=== PATIENT | female | born 1995 | race Caucasian/White ===

== ENCOUNTER 2021-12-19 19:08 | Emergency (ER) | payer BC, MEDICAID, SELFPAY ==
[2021-12-19 19:09] VITALS: BP 131/89; PULSE 128; RESP 15; TEMP 36.8; O2SAT 98; BMI 23.4
--- NOTE | 2021-12-19 19:54 | EDS_ITS ---
HPI HPI - GI History of Present Illness Chief Complaint: Abd Pain Informant: patient Abdominal Pain/Flank Pain Onset: Today Context: Sudden Onset Timing: Continuous Quality: Sharp Location: - (Periumbilical and left mid abdomen) Worsened by: Nothing Relieved by: Nothing Nausea/Vomiting/Emesis GI Symptom: Positive for Nausea and Vomiting Onset: Today Quality: Positive for Nonbilious; Negative for Blood streaks, Coffee ground or Hematemesis Episodes: 10 Diarrhea/Melena/Hematochezia GI Symptom: Positive for Diarrhea; Negative for Melena or Hematochezia Associated Symptoms Associated Symptoms: Negative for Dysuria, Frequency or Hematuria LMP: 2 weeks ago Narrative Narrative: Patient Cindi with abdominal pain, nausea, and vomiting that began early this morning. Patient states she woke up early this morning with nausea and vomiting. Patient denies any hematemesis or coffee-ground emesis. Patient states she vomited approximately 10 times. Patient states it is mainly stomach contents. Patient states that she started having some periumbilical abdominal pain later in the day. Patient states it comes and goes. Patient states it is sharp. Patient states that sometimes it radiates to the left mid abdomen. Patient denies any radiation into her back. Patient states nothing makes it better nothing makes it worse. Patient also admits to some diarrhea. Patient denies any melena or hematochezia. Patient denies any urinary complaints. Patient states her last menstrual period was approximately 2 weeks ago. PFSH PFSH Medical History no medical history no medical history Home Medications amoxicillin 875 mg-potassium clavulanate 125 mg tablet 875 mg PO Q12H #20 TABLETS 12/19/21 [Rx Last Taken Unknown] Allergy/AdvReac Type Severity Reaction Status Date / Time No Known Allergies Allergy Verified 12/19/21 19:12 Surgical History no surgical history no surgical history Social History Smoking Status: Current every day smoker tobacco type: cigarettes ROS ROS ED Constitutional Constitutional ED: Reports chills and subjective; Denies fever(s) Eyes Eyes: Denies blurry vision or change in vision ENT ENT ED: Denies rhinorrhea or sore throat Cardiovascular Cardiovascular: Denies chest pain or palpitations Respiratory/Chest Respiratory/Chest: Denies cough or dyspnea Gastrointestinal Gastrointestinal: Reports abdominal pain, diarrhea, nausea and vomiting Genitourinary Genitourinary ED: Denies dysuria or hematuria Musculoskeletal Musculoskeletal: Denies back pain or neck pain Integumentary Denies abscess or rash Neurologic Neurologic: Denies headache(s) or weakness Allergic/Immunologic Allergic/Immunologic ED: Denies mouth swelling or urticaria EXAM Physical Exam Const Vital Signs: 12/19/21 19:09 Temperature 98.3 F Temperature Source Temporal Pulse Rate 128 H Respiratory Rate 15 Blood Pressure 131/89 H Blood Pressure Mean 103 Pulse Ox 98 Oxygen Delivery Method Room Air Positive well nourished and well developed General Appearance ED: well developed and NAD HEENT Reports moist mucous membranes Neck supple and no JVD Resp normal respiratory effort and clear to auscultation bilaterally Cardio regular rate and regular rhythm GI non-distended Auscultation: normoactive bowel sounds Palpation: soft and tender LUQ and periumbilical; Negative for guarding or rebound tenderness present Neuro CN's II-XII intact bilaterally, moves all extremities and no sensory deficits noted Sensorium / Orientation: alert Motor Exam: strength 5/5 throughout Psych mental status grossly normal MDM MDM MDM Narrative Medical decision making narrative: Patient was given IV fluids, morphine, and Zofran. CBC showed a mild thrombocytopenia of 137. Comprehensive metabolic profile was within normal limits. Lipase was normal. Urinalysis shows urine ketones of 150. Leukocyte esterase was 500. There were 5-10 white blood cells and 10-25 squamous epithelial cells. There is 2+ bacteria. Urine culture was ordered. CT scan of the abdomen pelvis was obtained. There is mild infectious versus inflammatory distal terminal ileitis. This was interpreted by the radiologist and reviewed by myself. Patient was given a dose of Augmentin here. Patient was given a prescription for Augmentin. Patient was instructed to follow-up with a primary care physician in 5 to 7 days. Patient understands and is agreeable with the plan. All questions were answered. Lab Data Attestation: I reviewed the patient's lab results. Labs: Laboratory Results - last 24 hr 12/19/21 12/19/21 12/19/21 20:04 20:04 20:15 WBC 8.1 RBC 4.95 Hgb 14.5 Hct 44.5 MCV 89.9 MCH 29.3 MCHC 32.6 RDW Std Deviation 41.6 RDW Coeff of Ana 12.8 Plt Count 137 L MPV TNP Immature Gran % (Auto) 0.500 Neut % (Auto) 93.0 H Lymph % (Auto) 3.6 L [place] % (Auto) 2.7 Eos % (Auto) 0.1 Baso % (Auto) 0.1 Absolute Neuts (auto) 7.5 Absolute Lymphs (auto) 0.29 L Nucleated RBC % 0 Differential Comment SCANNED Sodium 139 Potassium 3.9 Chloride 105 Carbon Dioxide 26.0 Anion Gap 8 BUN 10 Creatinine 0.80 Estim Creat Clear Calc 96.73 Est GFR (MDRD) Af Amer 112 Est GFR (MDRD) Non-Af 93 BUN/Creatinine Ratio 12.5 Glucose 109 H Calcium 9.0 Total Bilirubin 0.80 AST 15 ALT 19 Alkaline Phosphatase 63 Total Protein 7.4 Albumin 3.9 Globulin 3.5 Albumin/Globulin Ratio 1.1 Lipase 78 Urine Color Yellow Urine Clarity Sl. Cloudy Urine pH 5.0 Ur Specific [place] 1.025 Urine Protein 30 H Urine Glucose (UA) Normal Urine Ketones 150 A* Urine Occult Blood 10 H Urine Nitrite Negative Urine Bilirubin 1 H Urine Urobilinogen Normal Ur Leukocyte Esterase 500 H Urine RBC 0 SEEN Urine WBC 5-10 SEEN Ur Squamous Epith Cells 10-25 SEEN Urine Bacteria 2+ Urine Mucus 2+ Radiography Diagnostic Testing: Clinical Impression(s) from Imaging Studies Abdomen/Pelvis CT 12/19/21 20:02 IMPRESSION: Mild infectious versus inflammatory distal and terminal ileitis. If the patient''s symptoms persist or become chronic/intermittent, Crohn''s disease should be considered. Electronically Signed: Addison Jackman MD at 22:03 EDT Reading Location ID and State: [address] [place] [address] Tel , Service support , Discharge Plan Triage Chief Complaint: Abd Pain ED Provider: Ovi Hernadez Dx/Rx/DC Orders Clinical Impression: Ileitis, terminal, Abdominal pain Instructions: ED Crohn's Disease Prescriptions: New amoxicillin-pot clavulanate [amoxicillin-pot clavulanate] 875-125 mg tablet 875 mg PO Q12H Qty: 20 0RF Primary Care Provider: Care Physician,No Primary Referrals: Care Physician,No Primary [Primary Care Provider] - 5-7 Days Disposition Disposition: Home, Self Care
--- NOTE | 2021-12-19 20:02 | CT_ITS ---
STUDY: CT ABDOMEN AND PELVIS WITH CONTRAST REASON FOR EXAM: Female, 26 years old. Abdominal pain. TECHNIQUE: IV Contrast: 100mL Isovue-300 Enteric contrast: GASTROGRAFIN administered. Axial images obtained. Coronal and sagittal reformatted images provided. Individualized dose optimization techniques were used for this CT. COMPARISON: None. FINDINGS: Partially visualized lower chest: Lung bases unremarkable. Liver: No concerning lesions. Gallbladder and biliary tree: No visible gallstones. No pericholecystic inflammation. No biliary ductal dilation. Pancreas: No pancreatic lesions or inflammation. Spleen: Normal size, no splenic lesions. Adrenal glands: No concerning masses. Kidneys and ureters: No hydronephrosis or renal stones. No concerning masses. No ureteral dilation. Bowel: Normal appendix mild long segment wall thickening of the distal and terminal ileum. No obstruction. No other inflammation of the bowel. Urinary bladder: No stones or wall thickening. Reproductive:Normal uterus and ovaries. Physiologic simple 2.8 cm left ovarian cyst. Vascular: No abdominal aortic aneurysm. Patent portal, mesenteric and systemic veins. Retroperitoneal and peritoneal spaces: Moderate volume simple density fluid in the pelvis. No free air or extraluminal air or abscess. No lymphadenopathy. No retroperitoneal mass or hematoma. Osseous: No acute osseous abnormality. Abdominal and pelvic wall: No concerning findings. Any findings described in the findings sections and not included in the impression are incidental and do not require imaging follow-up. CT/Abdomen/Pelvis WITH Contrast IMPRESSION: Mild infectious versus inflammatory distal and terminal ileitis. If the patient''s symptoms persist or become chronic/intermittent, Crohn''s disease should be considered. Electronically Signed: Addison Jackman MD at 22:03 EDT Reading Location ID and State: [facility] [place] Tel , Service support ,
[2021-12-19] MEDS: Ondansetron 4 MG/2 ML Vial IV (20:16)
[2021-12-19] MEDS: 0.9% Normal Saline 1,000 ML 1000 ML IV (20:16)
[2021-12-19] MEDS: Morphine 4 MG/ML Syringe IV (20:17)
[2021-12-19 20:27] LABS: Absolute Lymphocyte Count 0.29 X10^3/uL (0.83-4.51); Absolute Neutrophil Count 7.5 X10^3/uL (2.0-7.7); Basophil# 0.01 X10^3/uL; Basophil% 0.1 % (0-1); Eosinophil# 0.01 X10^3/uL; Eosinophils% 0.1 % (0-5); Hematocrit 44.5 % (37-47); Hemoglobin 14.5 g/dL (12.0-15.0); Lymphocyte # 0.29 X10^3/ul (0.83-4.51); Lymphocyte % 3.6 % (19-41); Mean Corp Hgb Conc 32.6 g/dL (32-36); Mean Corpuscular Hgb 29.3 pg (27.0-32.0); Mean Corpuscular Volume 89.9 fL (81-99); Monocyte# 0.22 X10^3/uL; Monocyte% 2.7 % (0-10); NRBC Flagged by Analyzer 0 % (0-5); Neutrophil # 7.53 X10^3/uL (2.7-7.7); POSITIVE DIFFERENTIAL YES; Platelet Count 137 K/mm3 (150-450); RBC Distribution Width CV 12.8 % (11.6-14.6); RBC Distribution Width SD 41.6 fl (35.1-43.9); Red Blood Count 4.95 M/mm3 (4.2-5.4); White Blood Count 8.1 K/mm3 (4.4-11.0)
[2021-12-19 20:27] LABS: Red Blood Cells-Urine 0 SEEN /hpf (0-5)
[2021-12-19 20:28] LABS: Color, Urine Yellow (Yellow); Glucose, Dipstick Normal (Normal); Leukocyte Esterase-Dipstick 500 /ul (Negative); Nitrite-Dipstick Negative (Negative); Occult Blood-Urine 10 /ul (Negative); Protein-Dipstick 30 mg/dl (Negative); Specific Gravity, Urine 1.025 (1.002-1.030); Urine Clarity Sl. Cloudy (Clear); Urine Urobilinogen Normal (Normal)
[2021-12-19 20:35] LABS: Differential Indicated SCAN CRITERIA MET
[2021-12-19 20:36] LABS: Urine Bilirubin Dipstick 1 mg/dL (Negative)
[2021-12-19 20:37] LABS: Ketone-Dipstick 150 mg/dl (Negative)
[2021-12-19 20:43] LABS: Squamous Epithelial Cells - UA 10-25 SEEN /hpf (5-10)
[2021-12-19 20:44] LABS: Bacteria 2+ /hpf (None Seen); Mucous, Urine 2+ /hpf (<or=2+); White Blood Cells 5-10 SEEN /hpf (0-5)
[2021-12-19 20:45] LABS: ALB/GLOB Ratio 1.1 RATIO (0.9-2.4); AST(SGOT) 15 U/L (15-37); Alanine Aminotransfer ALT/SGPT 19 U/L (13-56); Albumin, Serum 3.9 g/dL (3.2-5.0); Alkaline Phosphatase 63 U/L (45-117); Anion Gap 8 (5-15); BUN 10 mg/dL (7-18); BUN/Creat Ratio 12.5 RATIO (10-20); Chloride 105 mmol/L (98-107); EST Glomerular Filtration Rate 93 mL/min (>60); Est Glom Filt Rate - Afr Amer 112 mL/min (>60); Estimated Creatinine Clearance 96.73 ml/min; Globulin 3.5 g/dL (2.2-4.2); Glucose 109 mg/dL (74-106); Lipase 78 U/L (73-393); Potassium 3.9 mmol/L (3.5-5.1); Protein, Total 7.4 g/dL (6.4-8.2); Sodium Level 139 mmol/L (136-145)
--- NOTE | 2021-12-19 20:52 | CM.ED ---
SW Note Referral Source: Case Find Referral Reason: No Primary Care Physician (PCP) SW reviewed chart and noted that patient has no PCP. SW provided patient with list of [facility] and [facility] Physician List for reference. SW also provided patient with handout ?Where to go When?. No other issues or concerns voiced at this time. SW remains available for any additional needs. Plan: Provided patient with PCP information Greta PORTER
[2021-12-19 21:05] LABS: Differential Comment SCANNED
[2021-12-19] MEDS: Amox/Clavulanate 875 MG Tablet PO (22:36)
== END 2021-12-19 22:42 | disposition home or self-care (01) ==
PROVIDERS: Emergency Provider Emergency Medicine; Visit Provider Emergency Medicine
DX: R10.9 Unspecified abdominal pain (principal); F17.210 Nicotine dependence, cigarettes, uncomplicated; R11.2 Nausea with vomiting, unspecified; R19.7 Diarrhea, unspecified
CPT/HCPCS: 74177; 80053; 81001; 83690; 85025; 96361; 96374; 96375; 99284; Q9967; A4216; J2405

== ENCOUNTER 2023-10-09 07:04 | Emergency (ER) | payer BC, SELFPAY ==
[2023-10-09 07:04] VITALS: BP 136/84; PULSE 113; RESP 14; TEMP 36.6; O2SAT 97; BMI 27.6
--- NOTE | 2023-10-09 07:21 | CT_ITS ---
STUDY: CT ABDOMEN AND PELVIS WITH CONTRAST REASON FOR EXAM: Female, 28 years old. Abd pain with nausea and vomiting. RADIATION DOSAGE (If Supplied By Facility): CTDIvol = ( 10.6 ) mGy, DLP = ( 571.75 ) mGycm TECHNIQUE: Transaxial images were obtained from the dome of the diaphragm to the symphysis pubis without oral contrast. IV 100mL Isovue-300 was administered. Sagittal and coronal images were reconstructed. Individualized dose optimization techniques were used for this CT. COMPARISON: Comparison is made with prior study dated December 19, 2021. FINDINGS: There is a minimal degree of dependent bibasilar atelectasis. The visualized portions of the heart are within normal limits. Normal liver. Normal gallbladder and extrahepatic biliary system. Normal spleen. Normal pancreas. Normal bilateral adrenal glands. Normal right kidney. Normal left kidney. Normal visualized stomach. There are several fluid-filled nondilated small bowel loops in the ileum. Minimal thickening of the bowel wall at that site. Crohn''s disease should be ruled out. Normal colon. The appendix is visualized and appears normal. Normal abdominal aorta. Normal inferior vena cava. Normal retroperitoneum. Normal urinary bladder. There is a 2 cm cyst in the right ovary. Minimal amount of free fluid is seen in the cul-de-sac. Normal abdominal wall. Normal osseous structures. CT/Abdomen/Pelvis W IV Cont ONLY IMPRESSION: Nondistended fluid-filled distal small bowel loops. Mild thickening of the small bowel loops in the ileum and distal ileum suggestive of possible early Crohn''s disease. Clinical correlation recommended. Minimal amount of free fluid in the cul-de-sac. 2 cm right ovarian cyst. Electronically Signed: Lobo Munoz MD at 9:03 EDT ,
--- NOTE | 2023-10-09 07:22 | EDS_ITS ---
HPI History of Present Illness Chief Complaint: Abd Pain Informant: patient Onset/Context/Timing Onset: Yesterday Narrative Narrative: Patient presents secondary to abdominal pain with vomiting. She states last belinda lolita she vomited once but symptoms seem to come down. When she woke this morning to go to work she has been having intermittent sharp stabbing pain around the umbilicus. No further vomiting this morning. No diarrhea. No fever or chills. She denies any significant prior medical history and no surgical history. PFSH PFS Medical History (Updated 10/09/23 @ 09:[address] Sumi Nation MD) Inflammation of intestine Medical History no medical history no medical history Home Medications amoxicillin 875 mg-potassium clavulanate 125 mg tablet 875 mg (0.875 x 875-125 mg) PO Q12H #20 TABLETS 12/19/21 [Rx Last Taken Unknown] naproxen 500 mg tablet 500 mg PO BID #14 tabs 10/09/23 [Rx Last Taken Unknown] tramadol 50 mg tablet 50 mg PO Q6H PRN pain #14 tabs 10/09/23 [Rx Last Taken Unknown] Allergy/AdvReac Type Severity Reaction Status Date / Time No Known Allergies Allergy Verified 10/09/23 07:05 Surgical History no surgical history no surgical history Social History Smoking Status: Current every day smoker tobacco type: cigarettes ROS ROS ED Constitutional Constitutional ED: Denies chills or fever(s) Eyes Eyes: Denies discharge from eye(s) ENT ENT ED: Denies discharge from eye(s), rhinorrhea or sore throat Cardiovascular Cardiovascular: Denies chest pain Respiratory/Chest Respiratory/Chest: Denies cough or dyspnea Gastrointestinal Gastrointestinal: Reports abdominal pain, nausea and vomiting; Denies diarrhea Genitourinary Genitourinary ED: Denies dysuria Musculoskeletal Musculoskeletal: Denies back pain or extremity pain Integumentary Denies Abrasions or rash Neurologic Neurologic: Denies headache(s) or weakness Allergic/Immunologic Allergic/Immunologic ED: Denies lip swelling or urticaria EXAM Physical Exam Const Vital Signs: 10/09/23 07:04 10/09/23 09:04 Temperature 98 F 97.6 F L Temperature Source Temporal Temporal Pulse Rate 113 H 51 L Respiratory Rate 14 16 Blood Pressure 136/84 H 120/62 Blood Pressure Mean 101 81 Pulse Ox 97 99 Oxygen Delivery Method Room Air Room Air Positive well nourished and well developed General Appearance ED: well developed HEENT Reports moist mucous membranes Eyes EOMs intact bilaterally Chest Wall inspection of chest normal and palpation of chest normal Resp normal respiratory effort and clear to auscultation bilaterally Cardio regular rate and regular rhythm GI GI Narrative: Abdomen soft with minimal periumbilical tenderness. No guarding or rebound. No palpable masses. Hypoactive bowel sounds are noted. Extremity normal to inspection Neuro oriented x3 and no sensory deficits noted Motor Exam: strength 5/5 throughout Psych mental status grossly normal Skin no rashes or lesions noted MDM MDM MDM Narrative Medical decision making narrative: IV line established. Patient given Toradol and Zofran along with IV fluids. Labwork obtained to evaluate for leukocytosis, anemia, and electrolyte derangement. Urinalysis obtained to evaluate for infection/hematuria. CT scan of the abdomen pelvis IV contrast obtained to evaluate for potential ovarian cyst, appendicitis, mesenteric adenitis. History & Record Review Discussion w/independent historian: Patient Additional record(s) reviewed:: Prior labs Lab Data Attestation: I reviewed the patient's lab results. Labs: Laboratory Results - last 24 hr 10/09/23 05:27 WBC 9.9 RBC 4.74 Hgb 13.7 Hct 42.0 MCV 88.6 MCH 28.9 MCHC 32.6 RDW Std Deviation 40.9 RDW Coeff of Ana 12.5 Plt Count 128 L MPV 13.9 H Immature Gran % (Auto) 0.300 Neut % (Auto) 86.5 H Lymph % (Auto) 6.7 L [place] % (Auto) 5.6 Eos % (Auto) 0.8 Baso % (Auto) 0.1 Absolute Neuts (auto) 8.6 H Absolute Lymphs (auto) 0.66 L Nucleated RBC % 0 Sodium 137 Potassium 3.6 Chloride 105 Carbon Dioxide 26.0 Anion Gap 6 BUN 8 Creatinine 0.74 Estim Creat Clear Calc 115.85 Est GFR (MDRD) Af Amer 121 Est GFR (MDRD) Non-Af 100 BUN/Creatinine Ratio 10.8 Glucose 97 Calcium 8.7 Total Bilirubin 1.30 H Direct Bilirubin 0.29 AST 11 L ALT 18 Alkaline Phosphatase 59 Total Protein 7.2 Albumin 3.7 Globulin 3.5 Serum , Qual NEGATIVE Urine Color Yellow Urine Clarity Cloudy Urine pH 5.0 Ur Specific [place] 1.020 Urine Protein Negative Urine Glucose (UA) Normal Urine Ketones 5 H Urine Occult Blood 10 H Urine Nitrite Negative Urine Bilirubin Negative Urine Urobilinogen 1 H Ur Leukocyte Esterase 100 H Urine RBC 0-5 SEEN Urine WBC 5-10 SEEN Ur Squamous Epith Cells 10-25 SEEN Urine Bacteria 1+ Urine Mucus 0 SEEN Radiography Diagnostic Testing: Clinical Impression(s) from Imaging Studies Abdomen/Pelvis CT 10/09/23 07:21 IMPRESSION: Nondistended fluid-filled distal small bowel loops. Mild thickening of the small bowel loops in the ileum and distal ileum suggestive of possible early Crohn''s disease. Clinical correlation recommended. Minimal amount of free fluid in the cul-de-sac. 2 cm right ovarian cyst. Electronically Signed: Lobo Munoz MD at 9:03 EDT , Treatment and Re-Evaluation :: CBC normal white count 9.9 with a hemoglobin of 13.7. Platelet count is low at 128. On review of prior records this is about her baseline. Chemistry studies are unremarkable. LFTs significant only for a total bili of 1.3. Urinalysis reveals contaminated sample with 10-25 epithelial cells with 1+ bacteria and 5- 10 white cells. No nitrites noted. CT scan of the flank reveals nondistended fluid-filled distal small bowel loops. There is mild thickening of the small bowel loops suggestive of possible early Crohn's disease. There is a minimal amount of free fluid in the pelvis with a 2 cm right ovarian cyst. Test results are discussed with the patient. She be given a dose of Bentyl and morphine for continued pain. Patient was not aware that she had a history of thrombocytopenia. I will refer her to GI for follow-up as needed and we did discuss possibility of early Crohn's disease. I think the majority of her pain that she is experiencing today is secondary to the free fluid in her pelvis with the ovarian cyst. She is to follow up with her [employer] for that. Discharge Plan Triage Chief Complaint: Abd Pain ED Provider: Sumi Nation Dx/Rx/DC Orders Clinical Impression: Ovarian cyst, Gastroenteritis, Thrombocytopenia Instructions: Thrombocytopenia, ED Gastroenteritis, Noninfectious, ED Ovarian Cyst Prescriptions: New tramadol 50 mg tablet 50 mg PO Q6H PRN (Reason: pain) Qty: 14 0RF naproxen 500 mg tablet 500 mg PO BID Qty: 14 0RF No Action amoxicillin-pot clavulanate [amoxicillin-pot clavulanate] 875-125 mg tablet 875 mg PO Q12H Qty: 20 0RF Primary Care Provider: Care Physician,No Primary Referrals: Bobby Zhang MD [Non-Staff] - As Needed Care Physician,No Primary [Primary Care Provider] - Activity Restrictions/Additional Instructions: Please follow-up with your [employer] as needed regarding your ovarian cyst. You have been referred to Dr. Zhang, GI doctor as needed given the bowel wall thickening and possible early Crohn's. Disposition Disposition: Home, Self Care
[2023-10-09] MEDS: 0.9% Normal Saline (1000mL) 1,000 ML 1000 ML IV (07:33)
[2023-10-09] MEDS: Ondansetron 4 MG/2 ML Vial IV (07:34)
[2023-10-09] MEDS: Ketorolac 15 MG/ML Vial IV (07:34)
[2023-10-09 07:44] LABS: Mucous, Urine 0 SEEN /hpf (<or=2+)
[2023-10-09 07:55] LABS: Color, Urine Yellow (Yellow); Glucose, Dipstick Normal (Normal); Ketone-Dipstick 5 mg/dl (Negative); Leukocyte Esterase-Dipstick 100 /ul (Negative); Nitrite-Dipstick Negative (Negative); Occult Blood-Urine 10 /ul (Negative); Protein-Dipstick Negative (Negative); Urine Bilirubin Dipstick Negative (Negative); Urine Clarity Cloudy (Clear); Urine Urobilinogen 1 mg/dl (Normal)
[2023-10-09 07:56] LABS: Absolute Lymphocyte Count 0.66 X10^3/uL (0.83-4.51); Absolute Neutrophil Count 8.6 X10^3/uL (2.0-7.7); Basophil# 0.01 X10^3/uL; Basophil% 0.1 % (0-1); Eosinophil# 0.08 X10^3/uL; Eosinophils% 0.8 % (0-5); Hemoglobin 13.7 g/dL (12.0-15.0); Lymphocyte # 0.66 X10^3/ul (0.83-4.51); Lymphocyte % 6.7 % (19-41); Mean Corp Hgb Conc 32.6 g/dL (32-36); Mean Corpuscular Hgb 28.9 pg (27.0-32.0); Mean Corpuscular Volume 88.6 fL (81-99); Mean Platelet Vol. 13.9 fl (6.2-12.0); Monocyte# 0.56 X10^3/uL; Monocyte% 5.6 % (0-10); NRBC Flagged by Analyzer 0 % (0-5); Neutrophil # 8.58 X10^3/uL (2.7-7.7); Neutrophil % 86.5 % (47-70); Platelet Count 128 K/mm3 (150-450); RBC Distribution Width CV 12.5 % (11.6-14.6); RBC Distribution Width SD 40.9 fl (35.1-43.9); Red Blood Count 4.74 M/mm3 (4.2-5.4); White Blood Count 9.9 K/mm3 (4.4-11.0)
[2023-10-09 08:04] LABS: AST(SGOT) 11 U/L (15-37); Alanine Aminotransfer ALT/SGPT 18 U/L (13-56); Albumin, Serum 3.7 g/dL (3.2-5.0); Alkaline Phosphatase 59 U/L (45-117); Anion Gap 6 (5-15); BUN 8 mg/dL (7-18); BUN/Creat Ratio 10.8 RATIO (10-20); Bilirubin, Direct 0.29 mg/dL (0.00-0.30); Calcium,Total 8.7 mg/dL (8.5-10.1); Chloride 105 mmol/L (98-107); Creatinine, Serum 0.74 mg/dL (0.55-1.02); EST Glomerular Filtration Rate 100 mL/min (>60); Est Glom Filt Rate - Afr Amer 121 mL/min (>60); Estimated Creatinine Clearance 115.85 ml/min; Globulin 3.5 g/dL (2.2-4.2); Glucose 97 mg/dL (74-106); Potassium 3.6 mmol/L (3.5-5.1); Protein, Total 7.2 g/dL (6.4-8.2); Sodium Level 137 mmol/L (136-145)
[2023-10-09 08:05] LABS: Internal QC Validated? YES +Cl - CLEAR BKGD; Pregnancy, Serum, hCG Quali. NEGATIVE Negative
[2023-10-09 08:10] LABS: Red Blood Cells-Urine 0-5 SEEN /hpf (0-5); Squamous Epithelial Cells - UA 10-25 SEEN /hpf (5-10); White Blood Cells 5-10 SEEN /hpf (0-5)
[2023-10-09 08:11] LABS: Bacteria 1+ /hpf (None Seen)
[2023-10-09 09:04] VITALS: BP 120/62; PULSE 51; RESP 16; TEMP 36.4; O2SAT 99
[2023-10-09] MEDS: Dicyclomine 10 MG Capsule 20 MG PO (09:57)
[2023-10-09] MEDS: Morphine 4 MG/ML Syringe IV (09:57)
[2023-10-09 10:25] VITALS: BP 121/72; PULSE 78; RESP 14; TEMP 36.8; O2SAT 100
== END 2023-10-09 10:27 | disposition home or self-care (01) ==
PROVIDERS: Emergency Provider Emergency Medicine; Visit Provider Emergency Medicine
DX: N83.201 Unspecified ovarian cyst, right side (principal); K52.9 Noninfective gastroenteritis and colitis, unspecified; D69.6 Thrombocytopenia, unspecified; F17.210 Nicotine dependence, cigarettes, uncomplicated
CPT/HCPCS: 74177; 80048; 80076; 81001; 84703; 85025; 96361; 96374; 96375; 99282; J7030; Q9967; A4216; J2405

== ENCOUNTER 2024-11-18 18:24 | Emergency (ER) | payer BC, SELFPAY ==
[2024-11-18 18:25] VITALS: BP 150/76; PULSE 108; RESP 20; TEMP 36.6; O2SAT 98; BMI 27.7
[2024-11-18] MEDS: Acetaminophen 500 MG Tablet 1000 MG PO (19:17)
[2024-11-18] MEDS: 0.9% Normal Saline (1000mL) 1,000 ML 1000 ML IV (19:17)
[2024-11-18] MEDS: Ondansetron 4 MG/2 ML Vial IV (19:20)
[2024-11-18 19:22] VITALS: BP 135/68; PULSE 85; RESP 20; O2SAT 100
--- NOTE | 2024-11-18 19:23 | PCA ---
no old ekg
[2024-11-18 19:31] LABS: Absolute Lymphocyte Count 1.92 X10^3/uL (0.83-4.51); Absolute Neutrophil Count 8.4 X10^3/uL (2.0-7.7); Basophil# 0.03 X10^3/uL; Basophil% 0.3 % (0-1); Eosinophils% 1.8 % (0-5); Hematocrit 39.8 % (37-47); Hemoglobin 13.5 g/dL (12.0-15.0); Lymphocyte # 1.92 X10^3/ul (0.83-4.51); Lymphocyte % 17.2 % (19-41); Mean Corp Hgb Conc 33.9 g/dL (32-36); Mean Corpuscular Volume 88.4 fL (81-99); Monocyte# 0.58 X10^3/uL; Monocyte% 5.2 % (0-10); NRBC Flagged by Analyzer 0 % (0-5); Neutrophil # 8.37 X10^3/uL (2.7-7.7); Neutrophil % 74.8 % (47-70); Platelet Count 155 K/mm3 (150-450); RBC Distribution Width CV 12.7 % (11.6-14.6); RBC Distribution Width SD 41.3 fl (35.1-43.9); White Blood Count 11.2 K/mm3 (4.4-11.0)
--- NOTE | 2024-11-18 19:45 | EX.ED.DYSGE1 ---
HPI History of Present Illness Chief Complaint: Syncope Narrative Narrative: Chief complaint and HPI: Syncope. 29-year-old female with no significant past medical history presents for evaluation of syncope. 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 She states that she was walking to the bathroom and felt lightheaded. She states the next thing she remembers is waking up with EMS. Per report, patient had a syncopal episode while on the toilet. She had some mild shaking of one of her hands reported during the event. No tonic-clonic movement. Patient has no history of seizures. She has a small laceration to the forehead. She endorses headache. Triage note states that she has neck pain although she denies this to me. She is in a c-collar. She does not believe herself to be as she is not control. She denies any fever, chills, shortness of breath, chest pain abdominal pain, dysuria. Currently endorses some nausea. States she felt fine prior to this episode. Review of systems: See HPI Medications: As listed on the chart Allergies: As listed on the chart PFSH: Per chart Vital signs: As listed on the chart. Reviewed. Physical exam: Gen: A&O x3 Head: Normocephalic, frontal forehead hematoma with 0.5 cm laceration-laceration is not deep or gaping however unable to approximate it closed more as if it is partial abrasion Eyes: No sclera icterus, conjunctiva clear, PERRL, EOMI ENT: TMs clear BL, moist mucous membranes, no swelling/lacerations/blood in the mouth or the nares, No nasal septal hematoma, no facial tenderness, posterior oropharynx unremarkable, does have a small bite tete to the right lateral tongue Neck: Trachea midline, No JVD, Nontender, c-collar in place CV: RRR, no murmurs, no chest wall TTP Resp: Lungs CTA BL, no w/r/c GI: Abd soft, non-distended, non-tender, no r/r/g Musc: Full ROM, no deformity, no spinal TTP, no jie step-offs Skin: Warm, dry, intact Neuro: Alert, oriented, grossly intact, sensation intact, GCS 15 Psych: Cooperative, appropriate mood and affect [facility] Medical History (Updated 11/18/24 @ 22:[address] Jovi Hansen, DO) Inflammation of intestine Home Medications ?Medication ?Instructions ?Recorded ?Last Taken ?Type NK 11/18/24 Unknown History Allergy/AdvReac Type Severity Reaction Status Date / Time No Known Allergies Allergy Verified 11/18/24 18:24 Social History Smoking Status: Current every day smoker tobacco type: cigarettes EXAM Physical Exam Const Vital Signs: 11/18/24 18:25 11/18/24 18:28 11/18/24 19:22 Temperature 97.9 F Temperature Source Oral Pulse Rate 108 H 85 Respiratory Rate 20 H 20 H Respiratory Effort Normal Respiratory Pattern Normal Blood Pressure 150/76 H 135/68 H Blood Pressure Mean 100 90 Pulse Ox 98 100 Oxygen Delivery Method Room Air Room Air 11/18/24 20:00 11/18/24 20:57 11/18/24 22:23 Temperature 97 F L Temperature Source Pulse Rate 74 93 70 Respiratory Rate 18 18 18 Respiratory Effort Respiratory Pattern Blood Pressure 117/62 120/76 130/94 H Blood Pressure Mean 80 90 106 Pulse Ox 97 99 100 Oxygen Delivery Method Room Air Room Air MDM MDM MDM Narrative Medical decision making narrative: 29-year-old female with no significant past medical history presents for evaluation of syncope. 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 She then developed lightheadedness and a syncopal episode on the toilet. See physical exam findings. She has a 0.5 cm forehead laceration with hematoma-laceration is not deep or gaping however unable to approximate it closed - more as if it is partial abrasion. Skin glue will not be a viable option. I do not know if suture repair will be able to close the defect either as it appears to be more of an abrasion than laceration. However patient was offered suture repair to assess if we can better approximate the area however she declined. She is not up-to-date on tetanus. Risks and benefits to tetanus was given and patient consented to tetanus update. Differential diagnosis includes but not limited to vasovagal episode, dehydration, arrhythmia, electrolyte abnormality, , substance abuse, anemia, intracranial abnormality, cervical fracture, concussion. NS bolus, Zofran, Tylenol ordered for symptoms. Syncope workup ordered including CT head and neck. EKG and chest x-ray reviewed see below. CBC with mild leukocytosis 11.2. No anemia or platelet dysfunction. D-dimer elevated at 1.10. Unable to rule out PE. CTA chest ordered. BMP shows mild dehydration but otherwise no significant electrolyte abnormality or LAZARUS. No hyperglycemia. No lactic acidosis. No transaminitis. Troponin unremarkable. UA positive for blood and 1+ bacteria however this is not a clean sample given the squamous epithelial cells. Patient not endorsing any dysuria. Will not treat at this time however will send for culture. She does have ketones which is consistent with dehydration. test negative. Urine drug screen positive for fentanyl. Alcohol level unremarkable. CT of the brain and cervical spine unremarkable for traumatic injury other than known hematoma. CTA of the chest negative for PE. She does have a tiny left lower lobe pulmonary nodule, likely a noncalcified granuloma. On reevaluation, patient still has a headache. She was offered ibuprofen but declined. States she will take some at home. At this point in time, I suspect that patient's syncopal episode was secondary to vasovagal response from dehydration however she did have fentanyl in her drug screen. Patient was educated to drink plenty of fluids over the next several days. Follow-up with primary care physician. Return back to the ED as symptoms change or worsen. Her and her significant other were given education on concussion symptoms. Patient ambulated without difficulty. Patient is stable to discharge home. EKG: Interpreted by me/EM physician: EKG shows normal sinus rhythm with no acute ischemic changes. Normal QTc. Heart rate 76. Diagnostic: Interpreted by me/EM physician: Chest x-ray without pneumonia, effusion, cardiomegaly, pneumothorax. Radiology in agreement. Impression: 1. Syncope, suspect vasovagal 2. Dehydration 3. Positive fentanyl in urine Lab Data Labs: Laboratory Results - last 24 hr 11/18/24 11/18/24 18:25 19:35 WBC 11.2 H RBC 4.50 Hgb 13.5 Hct 39.8 MCV 88.4 MCH 30.0 MCHC 33.9 RDW Std Deviation 41.3 RDW Coeff of Ana 12.7 Plt Count 155 MPV TNP Immature Gran % (Auto) 0.700 Neut % (Auto) 74.8 H Lymph % (Auto) 17.2 L [place] % (Auto) 5.2 Eos % (Auto) 1.8 Baso % (Auto) 0.3 Absolute Neuts (auto) 8.4 H Absolute Lymphs (auto) 1.92 Nucleated RBC % 0 D-Dimer Quant (PE/DVT) 1.10 H* Sodium 137 Potassium 3.6 Chloride 103 Carbon Dioxide 18.7 L Anion Gap 16 H BUN 13 Creatinine 0.72 Estim Creat Clear Calc 118.34 Est GFR (MDRD) Non-Af 116 BUN/Creatinine Ratio 17.5 Glucose 84 Lactic Acid 1.5 Calcium 8.9 Total Bilirubin 0.58 AST 27 ALT 23 Alkaline Phosphatase 68 Troponin T High Sens < 6 Total Protein 7.2 Albumin 4.4 Globulin 2.8 Albumin/Globulin Ratio 1.6 Urine Color Yellow Urine Clarity Clear Urine pH 5.0 Ur Specific Baker 1.025 Urine Protein 30 H Urine Glucose (UA) Normal Urine Ketones 15 H Urine Occult Blood 25 H Urine Nitrite Negative Urine Bilirubin Negative Urine Urobilinogen Normal Ur Leukocyte Esterase Negative Urine RBC 5-10 SEEN Urine WBC 0-5 SEEN Ur Squamous Epith Cells 5-10 SEEN Urine Bacteria 1+ Urine Mucus 0 SEEN Urine Test Negative Urine Opiates Screen NEGATIVE U Buprenorphine Qual NEGATIVE Ur Oxycodone Screen NEGATIVE Urine Methadone Screen NEGATIVE Urine Fentanyl Screen PRESUMPTIVE POSITIVE Ur Barbiturates Screen NEGATIVE Ur Phencyclidine Scrn NEGATIVE Ur Amphetamines Screen NEGATIVE U Benzodiazepines Scrn NEGATIVE Urine Cocaine Screen NEGATIVE U Cannabinoids Screen NEGATIVE Ethyl Alcohol < 10.1 Radiography Diagnostic Testing: Clinical Impression(s) from Imaging Studies Chest X-Ray 11/18/24 20:22 IMPRESSION: NEGATIVE CHEST Reading Location: [facility] Brain CT 11/18/24 20:36 IMPRESSION: 1. No acute intracranial finding. 2. Small hematoma along the midline anterior vertex. Reading Location: [facility] Cervical Spine CT 11/18/24 20:36 IMPRESSION: NO ACUTE CERVICAL FRACTURE Reading Location: [facility] Chest CTA 11/18/24 20:42 IMPRESSION: NORMAL CHEST CTA. NO EVIDENCE OF ACUTE PULMONARY EMBOLISM. Reading Location: [facility] Discharge Plan Triage Chief Complaint: Syncope ED Provider: Jovi Hansen Dx/Rx/DC Orders Clinical Impression: Syncope, Closed head injury, Laceration of forehead Instructions: Treatment for Vasovagal Syncope, Understanding Vasovagal Syncope, ED Concussion, ED Head Injury (Adult), ED Fainting, Uncertain Cause Prescriptions: No Action NK Stand Alone Forms: ED Work / School Excuse Primary Care Provider: Care Physician,No Primary Referrals: Cameron Meredith MD [Med Staff - Active Staff] - 3-5 Days Care Physician,No Primary [Primary Care Provider] - 3-5 Days Activity Restrictions/Additional Instructions: Follow-up with your primary care physician. If you do not have one follow-up with the one provided above. No clear reason for your syncope although I suspect that it was secondary to vasovagal reaction. Monitor for signs of concussion. Monitor for signs of infection of your laceration. No swimming pools, hot tubs, lakes, morrell, soaking the bathtub until fully healed. Return back to the ED if symptoms change or worsen. Recommend drinking plenty of fluids. Recommend getting up slowly from sitting position. He received Tylenol here in the emergency department, no Tylenol for 6 hours. Okay for ibuprofen. Okay for Tylenol afterwards. We did update your tetanus. Print Language: Swedish Disposition Disposition: Home, Self Care Discharge Date/Time: 11/18/24 22:25
[2024-11-18 19:46] LABS: Mucous, Urine 0 SEEN /hpf (<or=2+)
[2024-11-18 20:00] VITALS: BP 117/62; PULSE 74; RESP 18; O2SAT 97
[2024-11-18 20:13] LABS: Alcohol, Blood (Medical)-Serum < 10.1 mg/dL (<=10.0)
[2024-11-18 20:14] LABS: ALB/GLOB Ratio 1.6 RATIO (0.9-2.4); AST(SGOT) 27 U/L (<=31); Alanine Aminotransfer ALT/SGPT 23 U/L (<=34); Albumin, Serum 4.4 g/dL (3.5-5.0); Alkaline Phosphatase 68 U/L (35-104); Anion Gap 16 (5-15); BUN 13 mg/dL (4-19); BUN/Creat Ratio 17.5 RATIO (10-20); Calcium,Total 8.9 mg/dL (7.6-11.0); Carbon Dioxide 18.7 mmol/L (21.0-32.0); Chloride 103 mmol/L (98-108); Creatinine, Serum 0.72 mg/dL (0.70-1.20); EST Glomerular Filtration Rate 116 (>60); Estimated Creatinine Clearance 118.34 ml/min (50-250); Globulin 2.8 g/dL (2.2-4.2); Glucose 84 mg/dL (70-99); Lactic Acid 1.5 mmol/L (0.0-2.0); Potassium 3.6 mmol/L (3.3-5.1); Protein, Total 7.2 g/dL (5.9-8.4); Sodium Level 137 mmol/L (133-145); Total Bilirubin 0.58 mg/dL (0.00-1.30)
[2024-11-18 20:16] LABS: Internal QC Validated? YES +Cl - CLEAR BKGD; Pregnancy, Urine Negative Negative; Record Kit Lot#,Urine Preg 947241
--- NOTE | 2024-11-18 20:22 | RAD_ITS ---
PROCEDURE: CHEST PA AND LATERAL 11/18/2024 REASON FOR EXAM: SYNCOPE TECHNIQUE: Frontal and lateral views of the chest. COMPARISON: Same day chest CTA. FINDINGS: Hardware: None. Heart: The heart size is normal. Mediastinum: The mediastinal contour is unremarkable. Lungs: No focal consolidation, pleural effusion or pneumothorax. Bones: The bones are unremarkable. RAD/Chest PA and Lateral IMPRESSION: NEGATIVE CHEST Reading Location: [id number]
[2024-11-18 20:24] LABS: Color, Urine Yellow (Yellow); Glucose, Dipstick Normal (Normal); Ketone-Dipstick 15 mg/dl (Negative); Leukocyte Esterase-Dipstick Negative /ul (Negative); Nitrite-Dipstick Negative (Negative); Occult Blood-Urine 25 /ul (Negative); Protein-Dipstick 30 mg/dl (Negative); Specific Gravity, Urine 1.025 (1.002-1.030); Urine Bilirubin Dipstick Negative (Negative); Urine Clarity Clear (Clear); Urine Urobilinogen Normal (Normal)
[2024-11-18 20:31] LABS: Troponin T High Sensitivity < 6 ng/L (<=14)
--- NOTE | 2024-11-18 20:36 | CT_ITS ---
PROCEDURE: SPINE CERVICAL WITHOUT CONTRAS 11/18/2024 REASON FOR EXAM: TRAUMA TECHNIQUE: Cervical spine CT without contrast. Coronal and Sagittal reconstruction series were provided. One or more dose reduction techniques were used (e.g., Automated exposure control, adjustment of the mA and/or kV according to patient size, use of iterative reconstruction technique RADIATION DOSE SUMMARY: CTDlvol: 20 mGy DLP: 300 mGycm COMPARISON: None. FINDINGS: Alignment: There is straightening of the normal cervical lordosis. Vertebrae: No acute fracture. The vertebral body heights are maintained. The disc spaces are maintained. Soft Tissues: No prevertebral hematoma. CT/Spine Cervical without Contras IMPRESSION: NO ACUTE CERVICAL FRACTURE Reading Location: [id number]
--- NOTE | 2024-11-18 20:36 | CT_ITS ---
EXAM: BRAIN/HEAD WITHOUT CONTRAST CLINICAL HISTORY: 29 y/o F with SYNCOPE, CLOSED HEAD INJURY. COMPARISON: None. TECHNIQUE: Routine CT imaging of the head without IV contrast. Additional multiplanar reformats were obtained. Dose reduction techniques were used including intermediate exposure control (AEC),iterative reconstruction technique, and/or mA and/or KV dose adjustments based on patient's size. FINDINGS: No acute intracranial hemorrhage or herniation. The porras-white matter interfaces are maintained. The cerebral volume and subarachnoid spaces are normal for patient age. No ventriculomegaly. The orbits, visualized paranasal sinuses and mastoids are unremarkable. No acute calvarial fracture. Small hematoma along the midline anterior vertex. CT/Brain/Head without Contrast IMPRESSION: 1. No acute intracranial finding. 2. Small hematoma along the midline anterior vertex. Reading Location: [id number]
--- NOTE | 2024-11-18 20:42 | CT_ITS ---
PROCEDURE: CTA CHEST W/WO CONTRAST 11/18/2024 REASON FOR EXAM: PE TECHNIQUE: CTA axial imaging of the chest with intravenous contrast. Coronal and Sagittal reconstruction series were provided. 3D, 3D post processing, 3D reconstructions, Maximum intensity projection (MIPs) Volume rendering and Shaded surface rendering was provided. PATIENT PREPARATION: Per protocol CONTRAST: Isovue 370 VOLUME: 100mL One or more dose reduction techniques were used (e.g., Automated exposure control, adjustment of the mA and/or kV according to patient size, use of iterative reconstruction technique). RADIATION DOSE SUMMARY: CTDlvol: 35 mGy DLP: 400 mGycm COMPARISON: None. FINDINGS: Hardware: None. Lymph nodes: No axillary, mediastinal or hilar lymphadenopathy. Heart: The heart is normal in size without pericardial effusion. The great vessels are normal in caliber. Pulmonary Vessels: No central filling defect within the segmental or subsegmental pulmonary arteries. Lungs and Airways: The central airways are patent. Mild dependent atelectasis. Tiny left lower lobe pulmonary nodule, likely a noncalcified granuloma (series 8, image 67). No suspicious pulmonary mass. No pleural effusion or pneumothorax. Upper Abdomen: Visualized portions of the upper abdominal viscera are unremarkable. Bones: Bone windows are unremarkable. CT/CTA Chest W/WO Contrast IMPRESSION: NORMAL CHEST CTA. NO EVIDENCE OF ACUTE PULMONARY EMBOLISM. Reading Location: [id number]
[2024-11-18] MEDS: Lidocaine 1% /Epi 1:100 (20ml) 20 ML Vial 10 ML INFILT (20:54)
[2024-11-18] MEDS: Diphth,Pertuss(Acell),Tet Vac 0.5 ML Vial IM (20:54)
[2024-11-18 20:57] VITALS: BP 120/76; PULSE 93; RESP 18; O2SAT 99
[2024-11-18 21:18] LABS: Amphetamine Urine NEGATIVE (<1000 ng/mL); Barbiturate Urine NEGATIVE (< 200 ng/mL); Benzodiazepine Urine NEGATIVE (< 200 ng/mL); Buprenorphine Urine NEGATIVE (< 200 ng/mL); Cocaine Urine NEGATIVE (< 300 ng/mL); Fentanyl, Urine PRESUMPTIVE POSITIVE; Methadone Urine NEGATIVE (< 300 ng/mL); Opiates Urine NEGATIVE (< 300 ng/mL); Oxycodone, Urine NEGATIVE (< 100 ng/mL); PCP Urine NEGATIVE (< 25 ng/mL); THC Urine NEGATIVE (< 50 ng/mL)
[2024-11-18 21:20] LABS: Squamous Epithelial Cells - UA 5-10 SEEN /hpf (5-10)
[2024-11-18 21:21] LABS: Bacteria 1+ /hpf (None Seen); Red Blood Cells-Urine 5-10 SEEN /hpf (0-5); White Blood Cells 0-5 SEEN /hpf (0-5)
[2024-11-18 22:23] VITALS: BP 130/94; PULSE 70; RESP 18; TEMP 36.1; O2SAT 100
== END 2024-11-18 22:25 | disposition home or self-care (01) ==
PROVIDERS: Emergency Provider Surgery; Visit Provider Surgery
DX: E86.0 Dehydration (principal); R55 Syncope and collapse; S01.81XA Laceration without foreign body of other part of head, initial encounter; W18.11XA Fall from or off toilet without subsequent striking against object, initial encounter; Z23 Encounter for immunization; R91.1 Solitary pulmonary nodule; F17.210 Nicotine dependence, cigarettes, uncomplicated
CPT/HCPCS: 70450; 71046; 71275; 72125; 80053; 80307; 81001; 81025; 82077; 83605; 84484; 85025; 85379; 87086; 87088; 90715; 93005; 96361; 96374; 96376; 99285; Q9967; A4216; J2405

== ENCOUNTER 2025-05-17 11:46 | Emergency (ER) | payer BC, SELFPAY ==
[2025-05-17 11:47] VITALS: BP 139/93; PULSE 71; RESP 16; TEMP 36.9; O2SAT 100; BMI 29.0
[2025-05-17] MEDS: Lidocaine 1% (20 ml mdv) 20 ML Vial INFILT (12:47)
--- NOTE | 2025-05-17 14:10 | RAD_ITS ---
PROCEDURE: FINGER(S) MIN 2 VIEWS 05/17/2025 REASON FOR EXAM: INJURY TECHNIQUE: Procedure Code: RADFIN Modality: DX Procedure: FINGER(S) MIN 2 VIEWS Laterality: Left COMPARISON: None FINDINGS: Bones: Tuft fracture Joints: Normal alignment. Soft tissues: Soft tissue swelling. Other: No foreign body. Bandaging is present. RAD/Finger(s) Min 2 Views IMPRESSION: Soft tissue swelling. Tuft fracture. Reading Location: [id number]
--- NOTE | 2025-05-17 14:39 | CM.ED ---
Social Work Reason for visit: No PCP Patient verified that she does not currently have a PCP. [facility] provider list and Dont Wait brochure given to patient. No further needs identified at this time. Tootie Nam, PROCESS PLANNER, FITTER PLACER
[2025-05-17 14:57] VITALS: BP 149/70; PULSE 86; RESP 15; TEMP 36.4; O2SAT 96
--- NOTE | 2025-05-17 15:30 | EDS_ITS ---
HPI History of Present Illness Chief Complaint: Bite Informant: patient Narrative Narrative: 29-year-old female presenting to the emergency room with dog bites. Patient was at work today and tried to separate 2 dogs that were fighting when she was bit on the dorsum of her right hand and the left index finger. She states that the nail on her index finger is barely hanging on. She states that she would not like her tetanus updated as she is not concerned about that. The dog that bit her has been vaccinated against rabies and is up-to-date on their shots. Tetanus Immunization: Unknown ROS ROS ED Constitutional Constitutional ED: Denies chills or weight loss Eyes Eyes: Denies change in vision or diplopia ENT ENT ED: Denies ear pain, rhinorrhea or sore throat Cardiovascular Cardiovascular: Denies chest pain, orthopnea, palpitations or racing heartbeat Respiratory/Chest Respiratory/Chest: Denies cough, dyspnea or orthopnea Gastrointestinal Gastrointestinal: Denies abdominal pain, diarrhea, nausea or vomiting Genitourinary Genitourinary ED: Denies dysuria, hematuria or urinary frequency Musculoskeletal Musculoskeletal: Denies arthralgias or myalgias Integumentary Reports other Details: See HPI ; Denies abscess or rash Neurologic Neurologic: Denies headache(s) or weakness Psychiatric Psychiatric: Denies anxiety, depression, suicidal ideation or suicidal thoughts Endocrine Endocrinology: Denies polydipsia, polyphagia or polyuria Allergic/Immunologic Allergic/Immunologic ED: Denies mouth swelling, tongue swelling or urticaria PFSH PFSH Medical History Inflammation of intestine Medical History no medical history Home Medications ?Medication ?Instructions ?Recorded ?Last Taken ?Type amoxicillin 875 mg-potassium 875 mg (0.875 x 875-125 m g) PO 05/17/25 Unknown Rx clavulanate 125 mg tablet Q12H #14 TABLETS Allergy/AdvReac Type Severity Reaction Status Date / Time No Known Allergies Allergy Verified 05/17/25 11:50 Family History no significant family his Surgical History no surgical history Social History Smoking Status: Current every day smoker tobacco type: cigarettes EXAM Physical Exam Const Vital Signs: 05/17/25 11:47 05/17/25 14:57 Temperature 98.4 F 97.6 F L Temperature Source Oral Pulse Rate 71 86 Respiratory Rate 16 15 Blood Pressure 139/93 H 149/70 H Blood Pressure Mean 108 96 Pulse Ox 100 96 Oxygen Delivery Method Room Air Positive well nourished and well developed General Appearance ED: well developed HEENT Reports normocephalic, head/scalp atraumatic and moist mucous membranes Eyes PERRL and EOMs intact bilaterally Neck no lymphadenopathy, supple and no JVD Resp normal respiratory effort and clear to auscultation bilaterally Cardio regular rate, regular rhythm and no murmurs GI normal to inspection, nondistended, normoactive bowel sounds and non-tender Palpation: soft Back/Spine no CVA tenderness and normal ROM Extremity Extremity Narrative: There is a 1 cm linear laceration over the dorsum of the right hand with associated mild swelling. No active bleeding. No palpable foreign bodies or visualized foreign bodies Right index finger demonstrates a 1 cm curvilinear laceration over the tip with near complete avulsion of the mid nail. There is mild bleeding. Sensation is intact. No obvious foreign bodies are noted General Extremety ED: Negative for edema General Extremity: Negative for edema Neuro oriented x3 and CN's II-XII intact bilaterally Sensorium / Orientation: alert Motor Exam: strength 5/5 throughout Psych mental status grossly normal Mood & Affect: Negative for depressed or tearful Skin no rashes or lesions noted and no wounds MDM MDM MDM Narrative Medical decision making narrative: Differential diagnosis includes foreign body nailbed laceration nail avulsion dog bite neurovascular injury The right hand laceration was locally anesthetized washed with Shur-Clens irrigated explored no foreign bodies noted. It was loosely approximated using 1 simple interrupted 5-0 Ethilon suture. Dressed with bacitracin and Band-Aid. The left index finger underwent digital block and using a single volar approach using 1% lidocaine. After adequate anesthesia the nail was removed. Revealing a large 2 cm nailbed laceration. The proximal nail was trimmed back to fully visualize the nailbed laceration. The skin was washed with Shur-Clens irrigated and explored. There was noted to be bleeding consistent with more of a tuft fracture and simple laceration. The skin was tacked down using 4 simple erupted 5-0 Ethilon sutures. The nailbed laceration was repaired using 4 simple interrupted 5-0 chromic sutures. Wound was then dressed with Vaseline coated gauze and dressing placed by this physician. My independent interpretation of the finger x-rays is a open tuft fracture. Patient will be started on Augmentin first dose given here in the department. Local wound care discussed with the patient she will need to follow-up in 10 days for suture removal. History & Record Review Discussion w/independent historian: Patient Lab Data Attestation: I reviewed the patient's lab results. Radiography Diagnostic Testing: Clinical Impression(s) from Imaging Studies Finger X-Ray 05/17/25 14:10 IMPRESSION: Soft tissue swelling. Tuft fracture. Reading Location: [facility] Discharge Plan Triage Chief Complaint: Bite ED Provider: Patricio Davila Dx/Rx/DC Orders Clinical Impression: Open fracture of tuft of distal phalanx of finger, Laceration of finger nail bed, Finger laceration, Dog bite of dorsum of hand Instructions: ED Dog Bite, ED Fracture, Finger, Open Prescriptions: New amoxicillin-pot clavulanate 875-125 mg tablet 875 mg PO Q12H Qty: 14 0RF Primary Care Provider: Care Physician,No Primary Referrals: [facility] [Provider Group] - 10 Day for suture removal Care Physician,No Primary [Primary Care Provider, Medical] Print Language: Yemeni Disposition Disposition: Home, Self Care Discharge Date/Time: 05/17/25 14:58
== END 2025-05-17 14:58 | disposition home or self-care (01) ==
PROVIDERS: Emergency Provider Emergency Medicine; Visit Provider Emergency Medicine
DX: S62.631B Displaced fracture of distal phalanx of left index finger, initial encounter for open fracture (principal); F17.210 Nicotine dependence, cigarettes, uncomplicated; W54.0XXA Bitten by dog, initial encounter
CPT/HCPCS: 12001; 11750; 73140; 99283